=== PATIENT | female | born 1975 | race American Indian/Alaskan Native ===

== ENCOUNTER 2022-01-18 10:23 | Emergency (ER) | payer MEDICAID ==
[2022-01-18 10:55] VITALS: BP 167/109
[2022-01-18] MEDS ORDERED: ONDANSETRON 4 MG ODT TAB PO ONE (11:00)
--- NOTE | 2022-01-18 11:02 | Emergency Department Report ---
ED N/V/D HPI - General Chief complaint: Nausea/Vomiting/Diarrhea Stated complaint: BODY PAIN/VOMITING Time Seen by Provider: 01/18/22 11:00 Source: patient Mode of arrival: Ambulatory Limitations: No Limitations - History of Present Illness MD complaint: nausea, vomiting, other (burning pain to epigastric area like the previous time she had bad GERD. Request and GI Cocktail and evaluationfor dehydration due to minimal eating or drinking the last 2 days) -: Gradual Location: diffuse Radiation: none - Related Data Allergies Allergy/AdvReac Type Severity Reaction Status Date / Time No Known Allergies Allergy Unverified 01/18/22 10:55 ED Review of Systems ROS: Stated complaint: BODY PAIN/VOMITING Other details as noted in HPI Comment: All other systems reviewed and negative ED Past Medical Hx - Past Medical History Hx GERD: Yes - Surgical History Additional Surgical History: gastric bypass ED Physical Exam - General Limitations: No Limitations General appearance: alert, in no apparent distress - Head Head exam: Present: atraumatic, normocephalic - Eye Eye exam: Present: normal appearance - ENT ENT exam: Present: mucous membranes moist - Neck Neck exam: Present: normal inspection - Respiratory Respiratory exam: Present: normal lung sounds bilaterally. Absent: respiratory distress - Cardiovascular Cardiovascular Exam: Present: regular rate, normal rhythm. Absent: systolic murmur, diastolic murmur, rubs, gallop - GI/Abdominal GI/Abdominal exam: Present: soft, tenderness (Tenderness to the epigastrium with palpation. No masses appreciated. No Rovsing, no Anne Saldana, no Jurado sign.), normal bowel sounds. Absent: distended, guarding, rebound - Extremities Exam Extremities exam: Present: normal inspection - Back Exam Back exam: Present: normal inspection - Neurological Exam Neurological exam: Present: alert, oriented X3 - Psychiatric Psychiatric exam: Present: normal affect, normal mood - Skin Skin exam: Present: warm, dry, intact, normal color. Absent: rash ED Course Vital Signs 01/18/22 10:53 Temperature 97.5 F L Pulse Rate 82 Respiratory 18 Rate Blood Pressure 167/109 [Left] O2 Sat by Pulse 99 Oximetry Critical care attestation.: If time is entered above; I have spent that time in minutes in the direct care of this critically ill patient, excluding procedure time. ED Disposition Clinical Impression: Epigastric pain Disposition: LEFT AWOL/ELOPED Is pt being admited?: No Does the pt Need Aspirin: No Condition: Undetermined Instructions: Abdominal Pain, Adult
== END 2022-01-21 09:24 | disposition left against medical advice (07) ==
LOC: ED 10:23
DX: R10.13 Epigastric pain (principal)
CPT/HCPCS: 99281; J3490; Q0162